=== PATIENT | male | born 1935 | race Caucasian/White ===

== ENCOUNTER 2018-03-08 10:21 | Outpatient (CLI) | payer OTHER | END 2018-03-08 10:33 | disposition home or self-care (01) | LOC: TOM 10:21 | DX: M51.17 Intervertebral disc disorders with radiculopathy, lumbosacral region (principal) ==

== ENCOUNTER 2018-06-09 09:34 | Outpatient (CLI) | payer OTHER | END 2018-06-09 09:42 | disposition home or self-care (01) | LOC: RAD 501 09:34 | DX: M25.571 Pain in right ankle and joints of right foot (principal) ==

== ENCOUNTER → 2018-06-16 | Outpatient (CLI) | payer OTHER | END | disposition home or self-care (01) | LOC: EKG 07:52 → LAB 07:52 | DX: D64.89 Other specified anemias (principal); E88.89 Other specified metabolic disorders; D68.8 Other specified coagulation defects; N39.0 Urinary tract infection, site not specified; Z22.322 Carrier or suspected carrier of Methicillin resistant Staphylococcus aureus; I49.8 Other specified cardiac arrhythmias; Z76.89 Persons encountering health services in other specified circumstances ==

== ENCOUNTER 2018-06-22 09:47 | Outpatient (CLI) | payer OTHER ==
[2018-06-27] MEDS ORDERED: MEMANTINE HCL E21 MG PO (12:56)
[2018-06-27] MEDS ORDERED: SPRIVA (12:56)
[2018-06-27] MEDS ORDERED: COZAAR50 MG PO (12:57)
[2018-06-27] MEDS ORDERED: OXYBUTYNIN CHLO10 MG PO (12:57)
[2018-06-27] MEDS ORDERED: SERTRALINE HCL100 MG PO (12:58)
[2018-06-27] MEDS ORDERED: [UNRECOGNIZED DRUG - OTHER] PO (12:58)
[2018-06-27] MEDS ORDERED: APLENZIN174 MG PO (12:59)
[2018-06-27] MEDS ORDERED: [UNRECOGNIZED DRUG - OTHER] PO (13:00)
[2018-06-27] MEDS ORDERED: CLARITIN10 M1 PO (13:00)
[2018-06-27] MEDS ORDERED: PROBIOTIC1 EAC2 PO (13:00)
== END 2018-06-22 09:58 | disposition home or self-care (01) ==
LOC: LAB 09:47
DX: E55.9 Vitamin D deficiency, unspecified (principal); M85.88 Other specified disorders of bone density and structure, other site; M81.8 Other osteoporosis without current pathological fracture; E56.1 Deficiency of vitamin K

== ENCOUNTER 2018-06-24 14:20 | Outpatient (CLI) | payer OTHER ==
[2018-06-27] MEDS ORDERED: MEMANTINE HCL E21 MG PO (12:56)
[2018-06-27] MEDS ORDERED: SPRIVA (12:56)
[2018-06-27] MEDS ORDERED: COZAAR50 MG PO (12:57)
[2018-06-27] MEDS ORDERED: OXYBUTYNIN CHLO10 MG PO (12:57)
[2018-06-27] MEDS ORDERED: [UNRECOGNIZED DRUG - OTHER] PO (12:58)
[2018-06-27] MEDS ORDERED: SERTRALINE HCL100 MG PO (12:58)
[2018-06-27] MEDS ORDERED: APLENZIN174 MG PO (12:59)
[2018-06-27] MEDS ORDERED: CLARITIN10 M1 PO (13:00)
[2018-06-27] MEDS ORDERED: PROBIOTIC1 EAC2 PO (13:00)
[2018-06-27] MEDS ORDERED: [UNRECOGNIZED DRUG - OTHER] PO (13:00)
== END 2018-06-24 14:38 | disposition home or self-care (01) ==
LOC: NUCLEAR 14:20
DX: M81.0 Age-related osteoporosis without current pathological fracture (principal)

== ENCOUNTER 2018-06-28 05:53 | Day surgery (SDC) | payer OTHER ==
[~2018-06-28 05:53] MED LIST: APLENZIN174 MG PO; CLARITIN10 M1 PO; COZAAR50 MG PO; MEMANTINE HCL E21 MG PO; OXYBUTYNIN CHLO10 MG PO; PROBIOTIC1 EAC2 PO; SERTRALINE HCL100 MG PO; SPRIVA; [UNRECOGNIZED DRUG - OTHER] PO; [UNRECOGNIZED DRUG - OTHER] PO
== END 2018-06-28 14:55 | disposition home or self-care (01) ==
LOC: CIR.AMB 05:53
DX: M20.5X1 Other deformities of toe(s) (acquired), right foot (principal); M62.471 Contracture of muscle, right ankle and foot; M65.871 Other synovitis and tenosynovitis, right ankle and foot